=== PATIENT | male | born 1970 | race Two or more races ===

== ENCOUNTER 2021-09-27 14:55 | Outpatient (REF) | payer MEDICAID, SELFPAY ==
--- NOTE | ~2021-09-27 | XR_ITS ---
EXAMINATION: XR CHEST CLINICAL INFORMATION: Post Covid 19 condition. COMPARISON: None TECHNIQUE: 2 views of the chest were obtained. FINDINGS: The lungs are well-expanded and clear. The heart size and pulmonary vascularity is normal. No gross bony abnormality seen. XR/XR chest 2V IMPRESSION: Unremarkable chest exam.
== END 2021-09-27 14:56 | disposition home or self-care (01) ==
LOC: HO.XRAY 14:55
PROVIDERS: PCP Family Medicine; Visit Provider Internal Medicine
DX: U09.9 Post COVID-19 condition, unspecified (principal); R06.00 Dyspnea, unspecified
CPT/HCPCS: 71046; 99202

== ENCOUNTER 2021-10-11 10:01 | Outpatient (REF) | payer MEDICAID, SELFPAY ==
--- NOTE | 2021-10-11 | PFT_ITS ---
INDICATION: Dyspnea. SPIROMETRY: FEV1 to FVC of 82% with an FEV1 of 2.20 L which is 62% predicted and an FVC of 2.67 L which is 58% predicted. No significant response to bronchodilators noted. Maximum voluntary ventilation 69% predicted. LUNG VOLUMES: Total lung capacity 58% predicted. DIFFUSION CAPACITY: DLCO 55% predicted. COMPARISONS: None. INTERPRETATION: There is no obstructive ventilatory defect. No significant response to bronchodilators noted. There is a [id number] decrease in maximum voluntary ventilation, which could be secondary to deconditioning versus neuromuscular disease. However, the patient does have a restrictive ventilatory defect, consistent with moderate restrictive lung disease. In addition to that, there is a decrease in the expiratory reserve volume secondary to an elevated BMI. The patient also has moderate decrease in the diffusion capacity, which indeed corrects to normal when correcting for the alveolar volume. Need to consider underlying pulmonary vascular conditions, in addition, to a neuromuscular conditions. Clinical correlation warranted. Jose L Simon MD MR/MODL / [id number]
== END 2021-10-11 10:02 | disposition home or self-care (01) ==
LOC: HO.RESP 10:01
PROVIDERS: PCP Family Medicine; Visit Provider Internal Medicine
DX: R06.00 Dyspnea, unspecified (principal)
CPT/HCPCS: 94060; 94727; 94729; 99212

== ENCOUNTER 2021-10-24 07:52 | Outpatient (REF) | payer MEDICAID, SELFPAY ==
--- NOTE | ~2021-10-24 | CT_ITS ---
EXAMINATION: CT CHEST WITHOUT CONTRAST CLINICAL INFORMATION: Post Covid infection COMPARISON: Previous chest x-ray September 2021 TECHNIQUE: Multidetector volumetric CT imaging of the chest was done. Axial MIP volume rendering provided. Sagittal and coronal reformatted images were obtained. This CT examination was performed using dose optimization techniques as appropriate, variously including the following: *Automated exposure control *Adjustment of mA and/or kV according to patient size (this includes techniques or standardized protocols for targeted exams where dose is matched to indication/reason for exam; i.e. extremities or head) *Use of iterative reconstruction technique DLP: 226 mGy-cm FINDINGS: LUNGS: There is a 2 mm calcified right upper lobe nodule axial image 2 9 series 5. There is a small 2 x 5 mm peripheral or subpleural right upper lobe nodule along the minor fissure axial image 93 series 5. There is a 3 mm peripheral or subpleural left lower lobe nodule along the fissure axial image 287 series 5. These probably represent subpleural lymph nodes. There is linear scarring or subsegmental atelectasis in the right lower lobe. The lungs are otherwise clear. MEDIASTINUM: There are small calcified right hilar and subcarinal lymph nodes. The heart does not appear enlarged. There is mild coronary artery calcification. There is no pericardial effusion. PLEURA: There is no pleural effusion. No pleural mass or thickening. AXILLA: No lymphadenopathy. UPPER ABDOMEN: There is a 3 mm stone in the right kidney. There may be diverticulosis of the colon.. OSSEOUS STRUCTURES: Unremarkable. CT/CT chest wo con IMPRESSION: Focal scarring or subsegmental atelectasis in the posterior right lower lobe. No definite evidence of post Covid fibrotic changes. Evidence of old granulomatous disease. Small noncalcified peripheral or subpleural pulmonary nodules probably representing subpleural lymph nodes. Mild coronary artery calcification. Right renal stone. Fleischner guidelines were followed.
== END 2021-10-24 07:53 | disposition home or self-care (01) ==
LOC: HO.CT 07:52
PROVIDERS: Visit Provider Internal Medicine
DX: J98.4 Other disorders of lung (principal); R06.00 Dyspnea, unspecified; U09.9 Post COVID-19 condition, unspecified
CPT/HCPCS: 71250

== ENCOUNTER → 2021-12-14 14:33 | Outpatient (BNVA) | payer MEDICAID, SELFPAY | PROVIDERS: PCP Family Medicine; Visit Provider Internal Medicine | DX: J98.4 Other disorders of lung (principal); R06.00 Dyspnea, unspecified; U09.9 Post COVID-19 condition, unspecified | CPT/HCPCS: 94618; 99212 ==